=== PATIENT | female | born 1995 | race Caucasian/White ===

== ENCOUNTER 2024-05-21 22:37 | Emergency (ER) | payer OTHER ==
[~2024-05-21] VITALS: Ht 157.5 cm; Wt 79.9 kg
[2024-05-21 22:37] VITALS: BP 134/84; TEMP 99.8; O2SAT 99
[2024-05-21] MEDS ORDERED: IBUP200C29 PO (23:44)
[2024-05-22] MEDS ORDERED: CEPH500C PO (01:00)
[2024-05-22] MEDS: CEPHALEXIN 500 MG CAP PO ONE (01:29)
== END 2024-05-22 01:36 | disposition home or self-care (01) ==
LOC: M ED 22:37
DX: J02.0 Streptococcal pharyngitis (principal); Z79.1 Long term (current) use of non-steroidal anti-inflammatories (NSAID); Z79.2 Long term (current) use of antibiotics

== ENCOUNTER 2025-06-14 12:26 | Outpatient (CLI) | payer OTHER ==
[~2025-06-14] VITALS: Ht 157.5 cm; Wt 90.6 kg
[~2025-06-14 12:26] MED LIST: CEPH500C PO; IBUP200C29 PO
[2025-06-14] MEDS ORDERED: PRENTAB9 PO (12:44)
[2025-06-14] MEDS ORDERED: METF-839 PO (12:44)
[2025-06-14 12:45] VITALS: BP 109/68
[2025-06-14] MEDS ORDERED: HOME MED LIST COMPLETE! XX SCH (12:45)
[2025-06-14 14:11] VITALS: BP 105/62
== END 2025-06-14 14:45 | disposition home or self-care (01) ==
LOC: M LDO 12:26
PROVIDERS: ATTEND Obstetrics & Gynecology
DX: O28.8 Other abnormal findings on antenatal screening of mother (principal); O24.415 Gestational diabetes mellitus in pregnancy, controlled by oral hypoglycemic drugs; Z79.84 Long term (current) use of oral hypoglycemic drugs; Z3A.34 34 weeks gestation of pregnancy
CPT/HCPCS: 59025; 76815; 76819; 76820; G0463

== ENCOUNTER → 2025-06-19 | Outpatient (REF) | payer OTHER ==
[~2025-06-19] MED LIST changes: +METF-839 PO; +PRENTAB9 PO
== END ==
LOC: M SFHCWAGY 12:59
PROVIDERS: ATTEND Advanced Practice Midwife
DX: Z34.83 Encounter for supervision of other normal pregnancy, third trimester (principal)

== ENCOUNTER → 2025-06-26 | Outpatient (CLI) | payer OTHER | LOC: M WHC 06:49 | PROVIDERS: ATTEND Nurse Practitioner Family | DX: O24.410 Gestational diabetes mellitus in pregnancy, diet controlled (principal); Z3A.36 36 weeks gestation of pregnancy ==

== ENCOUNTER 2025-07-05 05:55 | Outpatient (CLI) | payer OTHER ==
[~2025-07-05] VITALS: Ht 157.5 cm; Wt 92.6 kg
[2025-07-05 06:21] VITALS: BP 126/83
[2025-07-05] MEDS: SERTRALINE HCL 25 MG TABLET PO SCH (07:18)
[2025-07-05] MEDS: MORPHINE 10 MG/ML 1 ML VIAL IV PRN (08:08)
[2025-07-05] MEDS: MORPHINE 10 MG/ML 1 ML VIAL SC ONE (08:08)
[2025-07-05 11:07] VITALS: BP 104/62
[2025-07-05 13:35] VITALS: BP 129/72
[2025-07-05] MEDS ORDERED: ZOLO25TA PO (14:04)
== END 2025-07-05 14:00 | disposition home or self-care (01) ==
LOC: M LDO 05:55
PROVIDERS: ATTEND Advanced Practice Midwife
DX: O99.343 Other mental disorders complicating pregnancy, third trimester (principal); O24.415 Gestational diabetes mellitus in pregnancy, controlled by oral hypoglycemic drugs; F41.9 Anxiety disorder, unspecified; F32.A Depression, unspecified; Z79.84 Long term (current) use of oral hypoglycemic drugs; Z3A.37 37 weeks gestation of pregnancy
CPT/HCPCS: 59025; 96374; 96375; G0463; J2550

== ENCOUNTER 2025-07-13 07:21 | Inpatient (IN) | payer OTHER ==
[~2025-07-13] VITALS: Ht 157.5 cm; Wt 91.3 kg
[2025-07-13] VITALS (22 sets, daily range): BP systolic 107–151; BP diastolic 56–93; O2SAT 97
[~2025-07-13 07:21] MED LIST changes: +ZOLO25TA PO
[2025-07-13] MEDS: LACTATED RINGER'S 1000 ML IV STA (08:58)
[2025-07-13] MEDS ORDERED: LIDOCAINE 1% MDV 20 ML VIAL INFIL PRN (09:00)
[2025-07-13] MEDS ORDERED: TRANEXAMIC ACID INJection 1,000 MG in NS 100 ML IV PRN (09:00)
[2025-07-13] MEDS ORDERED: METHYLERGONOVINE MALEATE 0.2 MG/ML 1 ML VIAL IM PRN (09:00)
[2025-07-13] MEDS ORDERED: CARBOPROST TROMETHAMINE 250 MCG/ML AMP IM PRN (09:00)
[2025-07-13] MEDS ORDERED: OXYTOCIN DRIP 30 UNITS in IV 1 EA IV PRN (09:00)
[2025-07-13 09:24] LABS: PLATELET COUNT, AUTOMATED 290 10^3/uL (150-450)
[2025-07-13 10:45] LABS: HIV 1&2 SCREEN NEGATIVE (NEGATIVE)
[2025-07-13 10:53] LABS: HEPATITIS C VIRUS ABY INDEX < 0.02 INDEX (<0.8)
[2025-07-13] MEDS ORDERED: HOME MED LIST COMPLETE! XX SCH (14:45)
[2025-07-13] MEDS: LR 1,000 ML IV SCH (14:54)
[2025-07-13] MEDS: OXYTOCIN DRIP 30 UNITS in IV 1 EA IV SCH (14:54)
[2025-07-13] MEDS: BUTORPHANOL 2 MG/ML 1 ML VIAL IV ONE (15:23)
[2025-07-13] MEDS ORDERED: CALCIUM CARBONATE 500 MG CHEW U/D PO PRN (19:45)
[2025-07-13] MEDS ORDERED: IBUPROFEN 600 MG TAB PO PRN (19:45)
[2025-07-13] MEDS ORDERED: ANUSOL HC CREAM 30 GM TOP PRN (19:45)
[2025-07-13] MEDS ORDERED: DOCUSATE SODIUM 100 MG CAPSULE PO PRN (19:45)
[2025-07-13] MEDS ORDERED: ACETAMINOPHEN 325 MG TAB PO PRN (19:45)
[2025-07-13] MEDS ORDERED: DIBUCAINE 1% OINTMENT 30 GM TOP PRN (19:45)
[2025-07-13] MEDS ORDERED: RHOGAM 300MCG (1500IU) INJ IM SCH (19:45)
[2025-07-13] MEDS ORDERED: METHYLERGONOVINE MALEATE 0.2 MG TAB PO PRN (19:45)
[2025-07-13] MEDS: ACETAMINOPHEN 500 MG TAB PO PRN (20:12)
[2025-07-13] MEDS: IBUPROFEN 800 MG TAB PO PRN (20:13)
[2025-07-14 05:37] VITALS: BP 103/57; O2SAT 99
[2025-07-14] MEDS: PRENATAL VITAMINS CHEWABLE TABLET PO SCH (08:35)
[2025-07-14] MEDS: SERTRALINE HCL 25 MG TABLET PO ONE (08:35)
[2025-07-14 18:00] VITALS: BP 125/77; O2SAT 98
[2025-07-15 05:22] VITALS: BP 117/63; O2SAT 98
[2025-07-15] MEDS ORDERED: MEASLES,MUMPS,RUBELLA VACCINE INJ (MMR-II) SC.IMMUN ONE (09:00)
== END 2025-07-15 13:35 | disposition home or self-care (01) | DRG 807 ==
LOC: M LDI 07:21 → M OBS 21:10
PROVIDERS: ADMIT Obstetrics & Gynecology; ATTEND Advanced Practice Midwife
PROC: 10E0XZZ Delivery of Products of Conception, External Approach (ICD-10-PCS; principal; 2025-07-13)
PROC: 3E033VJ Introduction of Other Hormone into Peripheral Vein, Percutaneous Approach (ICD-10-PCS; 2025-07-13)
DX: O24.425 Gestational diabetes mellitus in childbirth, controlled by oral hypoglycemic drugs (principal); Z37.0 Single live birth; Z3A.39 39 weeks gestation of pregnancy

== ENCOUNTER 2025-07-18 20:07 | Inpatient (IN) | payer OTHER ==
[~2025-07-18] VITALS: Ht 157.5 cm; Wt 85.0 kg
[2025-07-18] MEDS: ONDANSETRON 4MG 2ML VIAL IV ONE (21:20)
[2025-07-18] MEDS: MORPHINE 2 MG/ML 1 ML VIAL IV PRN (21:21)
[2025-07-18 21:26] LABS: BASO # 0.0 10^3/uL (0.0-0.2); BASO % 0.3 % (0.0-1.0); EOS # 0.1 10^3/uL (0.0-0.5); EOS % 1.0 % (0.0-3.0); LYMPH # 1.8 10^3/uL (1.5-5.0); LYMPH % 15.2 % (24.0-44.0); MONO # 1.1 10^3/uL (0.0-0.8); MONO % 9.1 % (2.0-8.0); NEUTROPHILS # 8.6 10^3/uL (1.5-8.5); NEUTROPHILS % 73.8 % (36.0-66.0); PLATELET COUNT, AUTOMATED 396 10^3/uL (150-450)
[2025-07-18 21:47] LABS: ALT/SGPT 369 U/L (7.0-40); AST/SGOT 499 U/L (<34); CALCIUM LEVEL 9.5 MG/DL (8.5-10.1); CARBON DIOXIDE LEVEL 26 MMOL/L (20-31); CHLORIDE LEVEL 106 MMOL/L (98-107); CREATININE FOR GFR 0.50 MG/DL (0.55-1.30); GLOMERULAR FILTRATION RATE > 90.0 (>60); POTASSIUM SERUM 4.7 MMOL/L (3.5-5.1); SODIUM LEVEL 141 MMOL/L (136-145)
[2025-07-18] MEDS ORDERED: MORPHINE 4 MG/ML 1 ML VIAL IV PRN (22:10)
[2025-07-18] MEDS ORDERED: ISOVUE-370 76% 100 ML VIAL As Ordered ONE (22:29)
[2025-07-19 04:14] LABS: HEPATITIS C VIRUS ABY INDEX < 0.02 INDEX (<0.8)
[2025-07-19] MEDS ORDERED: ONDANSETRON 4MG 2ML VIAL IV PRN (05:20)
[2025-07-19] MEDS ORDERED: MORPHINE 4 MG/ML 1 ML VIAL IV PRN ×2 (05:25→12:15)
[2025-07-19] MEDS: PIPERACILLIN/TAZOBACTAM SOD 3.375 GM in DEXTROSE 5% (D5W) ADV/MINI-BAG 50 ML IV SCH (06:18)
[2025-07-19 06:21] LABS: BASO # 0.0 10^3/uL (0.0-0.2); BASO % 0.4 % (0.0-1.0); EOS # 0.1 10^3/uL (0.0-0.5); EOS % 1.1 % (0.0-3.0); LYMPH # 2.8 10^3/uL (1.5-5.0); LYMPH % 26.8 % (24.0-44.0); MONO # 1.2 10^3/uL (0.0-0.8); MONO % 11.3 % (2.0-8.0); NEUTROPHILS # 6.3 10^3/uL (1.5-8.5); NEUTROPHILS % 59.9 % (36.0-66.0); PLATELET COUNT, AUTOMATED 355 10^3/uL (150-450)
[2025-07-19 06:54] LABS: C REACTIVE PROTEIN QUANTITATIV 3.48 MG/DL (<1.0)
[2025-07-19 07:16] LABS: ALT/SGPT 491 U/L (7.0-40); AST/SGOT 535 U/L (<34); CALCIUM LEVEL 8.6 MG/DL (8.5-10.1); CARBON DIOXIDE LEVEL 24 MMOL/L (20-31); CHLORIDE LEVEL 107 MMOL/L (98-107); CREATININE FOR GFR 0.46 MG/DL (0.55-1.30); GLOMERULAR FILTRATION RATE > 90.0 (>60); POTASSIUM SERUM 4.3 MMOL/L (3.5-5.1); SODIUM LEVEL 142 MMOL/L (136-145)
[2025-07-19] MEDS ORDERED: HOME MED LIST COMPLETE! XX SCH (07:30)
[2025-07-19] MEDS: LR 1,000 ML IV SCH (07:49)
[2025-07-19 08:10] VITALS: BP 136/87; TEMP 98.2; O2SAT 98
[2025-07-19] MEDS: DOCUSATE SODIUM 100 MG CAPSULE PO SCH (08:39)
[2025-07-19 11:39] VITALS: BP_SYST 117; BP_DIAS 36; BP_DIAS 86; TEMP 97.6; O2SAT 98
[2025-07-19] MEDS ORDERED: GLUCOSE 4 GM CHEW PO PRN (12:20)
[2025-07-19] MEDS ORDERED: GLUCAGON INJ 1 MG VIAL SC PRN (12:20)
[2025-07-19] MEDS ORDERED: DEXTROSE 50% 50 ML SYRINGE IV PRN (12:20)
[2025-07-19] MEDS: D5W/0.45% SODIUM CHLORIDE 1,000 ML IV SCH (13:26)
[2025-07-19] MEDS: KETOROLAC 30 MG/ML 1 ML VIAL IV PRN (14:54)
[2025-07-19 16:28] LABS: ALT/SGPT 421 U/L (7.0-40); AST/SGOT 290 U/L (<34); CALCIUM LEVEL 8.8 MG/DL (8.5-10.1); CARBON DIOXIDE LEVEL 27 MMOL/L (20-31); CHLORIDE LEVEL 109 MMOL/L (98-107); CREATININE FOR GFR 0.55 MG/DL (0.55-1.30); GLOMERULAR FILTRATION RATE > 90.0 (>60); POTASSIUM SERUM 4.4 MMOL/L (3.5-5.1); SODIUM LEVEL 145 MMOL/L (136-145)
[2025-07-19 20:00] VITALS: BP 126/93; TEMP 97.8; O2SAT 99
[2025-07-19] MEDS ORDERED: ENOXAPARIN 40 MG/0.4 ML SYRINGE (J1650 PER 10MG) SC SCH (21:00)
== END 2025-07-19 21:45 | disposition other institution (70) | DRG 776 ==
LOC: M ED 20:07 → M ED INP 07-19 05:16 → M PED 07-19 08:05
PROVIDERS: ADMIT Student in an Organized Health Care Education/Training Program; ATTEND Student in an Organized Health Care Education/Training Program
DX: O99.63 Diseases of the digestive system complicating the puerperium (principal); K80.42 Calculus of bile duct with acute cholecystitis without obstruction; O26.63 Liver and biliary tract disorders in the puerperium; K76.0 Fatty (change of) liver, not elsewhere classified; R74.01 Elevation of levels of liver transaminase levels; O99.345 Other mental disorders complicating the puerperium; F32.A Depression, unspecified